=== PATIENT | male | born 1970 | race Caucasian/White ===

== ENCOUNTER 2024-05-22 12:56 | Outpatient (CLI) | payer OTHER ==
[2024-05-22] MEDS ORDERED: Sterile Water 10 ML ONE (14:32)
[2024-05-22] MEDS ORDERED: Bacteriostatic Normal Saline 30 ML VIAL ONE (14:33)
[2024-05-22] MEDS ORDERED: Sincalide 5 MCG VIAL ONE (14:33)
== END 2024-05-22 12:57 | disposition home or self-care (01) ==
LOC: NM 12:56
DX: R10.13 Epigastric pain (principal); R11.2 Nausea with vomiting, unspecified; R14.0 Abdominal distension (gaseous)
CPT/HCPCS: 78227; A9537; J2805